=== PATIENT | female | born 1980 | race Caucasian/White ===

== ENCOUNTER 2021-08-19 14:48 | Emergency (ER) | payer SELFPAY ==
[~2021-08-19] VITALS: Ht 165.1 cm; Wt 61.2 kg
--- NOTE | 2021-08-19 15:05 | NUR ---
BIB [facility] C/O TACHYCARDIA AND ANXIETY S/P TAKING CBD OIL DROPLETS TODAY. DENIES CP. AAOX4, BREATHING EVEN AND UNLABORED, PULSES 2+ BILATERALLY, LUNGS CLEAR TO AUSCULTATION, ON MONITOR, HR 120.
[2021-08-19] MEDS ORDERED: LORAZEPAM INJ 2 MG/ML VIAL IV ONE ×2 (16:00→18:00)
[2021-08-19] MEDS ORDERED: IV NS 0.9% 1,000 ML IV ONE (16:00)
[2021-08-19] MEDS ORDERED: LORAZEPAM INJ 2 MG/ML VIAL ONE ×2 (16:07→18:00)
--- NOTE | 2021-08-19 17:50 | NUR ---
LAB AT BEDSIDE
[2021-08-19 18:14] LABS: BASOPHILS % (AUTO) 0.3 % (0.0-2.0); EOSINOPHILS % (AUTO) 0.2 % (0.0-6.0); HEMATOCRIT 38 % (33-45); HEMOGLOBIN 12.2 g/dL (11.5-14.8); LYMPHOCYTES # (AUTO) 1.1 K/uL (0.8-4.8); LYMPHOCYTES % (AUTO) 12.4 % (20.0-44.0); MEAN CORPUSCULAR HGB CONC 32 g/dl (31.0-36.0); MEAN CORPUSCULAR VOLUME 91 fL (82-100); MONOCYTES # (AUTO) 0.6 K/uL (0.1-1.30); MONOCYTES % (AUTO) 6.1 % (2.0-12.0); NEUTROPHILS # (AUTO) 7.4 K/uL (1.8-8.9); PLATELET COUNT (AUTO) 213 K/uL (150-450); RED BLOOD CELL COUNT(AUTO) 4.14 MIL/uL (4.0-5.2); WHITE BLOOD COUNT (AUTO) 9.2 K/uL (4.3-11.0)
[2021-08-19 18:31] LABS: CALCIUM, SERUM 8.6 mg/dL (8.5-10.1); CARBON DIOXIDE 25 mmol/L (21-32); CHLORIDE 104 mmol/L (98-107); CREATININE 0.8 mg/dL (0.6-1.3); GLUCOSE 107 mg/dL (74-106); POTASSIUM 3.8 mmol/L (3.5-5.1); SODIUM SERUM 139 mmol/L (136-145); UREA NITROGEN, BLOOD 10 mg/dL (7-18)
[2021-08-19 21:21] VITALS: BP 124/74
--- NOTE | 2021-08-19 21:21 | NUR ---
Patient discharged to home in stable condition. Written and verbal after care instructions given. Patient verbalizes understanding of instruction.IV removed. Catheter intact and site benign. Pressure and 4x4 applied to site. No bleeding noted.
== END 2021-08-19 21:22 | disposition home or self-care (01) ==
LOC: ER 14:54
DX: R00.0 Tachycardia, unspecified (principal); R00.2 Palpitations; T40.725A Adverse effect of synthetic cannabinoids, initial encounter; Y92.89 Other specified places as the place of occurrence of the external cause
CPT/HCPCS: 36415; 71045; 80048; 84484; 85025; 85378; 93005; 96361; 96374; 96376; 99291; J2060 ×2; J7030